=== PATIENT | female | born 1995 | race African-American/Black ===

== ENCOUNTER 2016-09-27 17:23 | Inpatient (IN) | payer OTHER ==
[~2016-09-27] VITALS: Ht 160 cm; Wt 54.4 kg
[2016-09-27 17:28] VITALS: BP 115/68; PULSE 59; RESP 18; TEMP 98; O2SAT 98
[2016-09-27] MEDS ORDERED: birth control PO (17:32)
[2016-09-27] MEDS ORDERED: SPRI28TA PO (18:20)
[2016-09-27 18:40] VITALS: BP 111/61; PULSE 53; RESP 18; TEMP 98.2; O2SAT 100
--- NOTE | 2016-09-27 18:40 | PD ---
HPI Chief Complaint: Psychiatric Symptoms Time Seen by Provider: 18:40 Travel History International Travel<30 days: No Contact w/Intl Traveler<30days: No Traveled to known affect area: No History of Present Illness HPI 21-year-old female is brought to the emergency department under Vázquez act for suicidal ideations. 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 When asked the patient if she is having any suicidal or homicidal ideations she states "I don't want to talk to anyone anymore." She denies any history of medical conditions. Denies any medical complaints. Denies fever, chills, nausea, vomiting, abdominal pain, chest pain, shortness of breath. Denies any alcohol or drug use. Denies any attempts to harm herself. Denies , last menstrual period 2 weeks ago. No other complaints. PFSH Past Medical History Chest Pain: Yes (CHEST PAIN R/T COSTOCHONDRITIS ) Diminished Hearing: No Respiratory: Yes (COSTOCHONDRITIS) Immunizations Current: Yes ?: Not : 0 Para: 0 Miscarriage: 0 : 0 Social History Alcohol Use: No Tobacco Use: No Substance Use: No Allergies-Medications (Allergen,Severity, Reaction): Coded Allergies: No Known Allergies (Unverified , 09/27/16) Reported Meds & Prescriptions Reported Meds & Active Scripts Active Reported Sprintec 28 (Norgestimate-Ethinyl Estradiol) 0.25-35 mg-Mcg Tab 1 Tab PO DAILY Review of Systems Except as stated in HPI: all other systems reviewed are Neg Physical Exam Narrative GENERAL: Well-nourished and well-developed female patient in no acute distress who is nontoxic appearing. SKIN: Warm and dry. HEAD: Normocephalic and atraumatic. EYES: No injection, drainage, or hyphema noted. PERRLA. EOMI. ENT: No nasal drainage noted. Oropharynx is clear. NECK: Supple and the trachea is midline. CARDIOVASCULAR: Regular rate and rhythm. RESPIRATORY: Breath sounds are equal bilaterally with no accessory muscle use, wheezing, rhonchi, or crackles. GASTROINTESTINAL: Abdomen is soft, non-tender, and nondistended. MUSCULOSKELETAL: No obvious deformities, swelling, cyanosis, or ecchymosis is present throughout the upper and lower extremities. Patient has full range of motion without any signs of neurovascular compromise. NEUROLOGICAL: Awake, alert, and oriented. Normal speech and gait. Cranial nerves are grossly intact. Data Data Last Documented VS Vital Signs Date Time Temp Pulse Resp B/P Pulse Ox O2 Delivery O2 Flow Rate FiO2 09/27/16 22:18 97.1 54 18 111/56 95 Room Air Orders Complete Blood Count With Diff (09/27/16 18:00) Comprehensive Metabolic Panel (09/27/16 18:00) Beta Hcg (Quant/Titer) (09/27/16 18:00) Psych Screen (09/27/16 18:00) Drug Screen, Random Urine (09/27/16 18:00) Alcohol (Ethanol) (09/27/16 18:00) Labs Laboratory Tests Test 09/27/16 09/27/16 18:27 19:15 White Blood Count 7.5 TH/MM3 Red Blood Count 4.52 MIL/MM3 Hemoglobin 11.7 GM/DL Hematocrit 36.2 % Mean Corpuscular Volume 80.2 FL Mean Corpuscular Hemoglobin 25.9 PG Mean Corpuscular Hemoglobin 32.2 % Concent Red Cell Distribution Width 12.8 % Platelet Count 236 TH/MM3 Mean Platelet Volume 7.3 FL Neutrophils (%) (Auto) 51.6 % Lymphocytes (%) (Auto) 37.7 % Monocytes (%) (Auto) 9.8 % Eosinophils (%) (Auto) 0.6 % Basophils (%) (Auto) 0.3 % Neutrophils # (Auto) 3.9 TH/MM3 Lymphocytes # (Auto) 2.8 TH/MM3 Monocytes # (Auto) 0.7 TH/MM3 Eosinophils # (Auto) 0.0 TH/MM3 Basophils # (Auto) 0.0 TH/MM3 CBC Comment DIFF FINAL Differential Comment Sodium Level 139 MEQ/L Potassium Level 3.6 MEQ/L Chloride Level 106 MEQ/L Carbon Dioxide Level 26.5 MEQ/L Anion Gap 7 MEQ/L Blood Urea Nitrogen 9 MG/DL Creatinine 0.82 MG/DL Estimat Glomerular Filtration 106 ML/MIN Rate Random Glucose 78 MG/DL Calcium Level 8.8 MG/DL Total Bilirubin 0.3 MG/DL Aspartate Amino Transf 18 U/L (AST/SGOT) Alanine Aminotransferase 24 U/L (ALT/SGPT) Alkaline Phosphatase 43 U/L Total Protein 7.0 GM/DL Albumin 3.3 GM/DL Human Chorionic Gonadotropin, LESS THAN 1 Quant MIU/ML Ethyl Alcohol Level LESS THAN 3 MG/DL Urine Opiates Screen NEG Urine Barbiturates Screen NEG Urine Amphetamines Screen NEG Urine Benzodiazepines Screen NEG Urine Cocaine Screen NEG Urine Cannabinoids Screen NEG MDM Medical Decision Making Medical Screen Exam Complete: Yes Emergency Medical Condition: Yes Differential Diagnosis Differential: Depression versus adjustment reaction versus anxiety versus PTSD versus psychosis NOS versus mood disorder NOS versus substance induced mood disorder versus ODD versus adjustment reaction versus schizophrenia versus bipolar disorder versus schizoaffective versus electrolyte abnormality Narrative Course Patient presents under a Vázquez act. Physical examination and vital signs are essentially unremarkable. Patient has no medical complaints to report. Psych screen has been ordered. The laboratory results are unremarkable. The patient is medically cleared for psychiatric evaluation and disposition. Diagnosis Primary Impression: Suicidal ideations Hoda Wilkes Sep 27, 2016 18:40
[2016-09-27 18:55] LABS: AUTOMATED NEUTROPHIL # 3.9 TH/MM3 (1.8-7.7); BASOPHIL % 0.3 % (0.0-2.0); EOSINOPHIL % 0.6 % (0.0-4.0); HEMATOCRIT 36.2 % (35.0-46.0); HEMO FLAGS DIFF FINAL; LYMPH % 37.7 % (9.0-44.0); LYMPHOCYTE # 2.8 TH/MM3 (1.0-4.8); MEAN CELL VOLUME 80.2 FL (80.0-100.0); MEAN CORPUSCULAR HEMOGLOBIN 25.9 PG (27.0-34.0); MEAN CORPUSCULAR HGB CONC 32.2 % (32.0-36.0); MONO % 9.8 % (0.0-8.0); NEUT % 51.6 % (16.0-70.0); PLATELET COUNT 236 TH/MM3 (150-450); RED BLOOD COUNT 4.52 MIL/MM3 (4.00-5.30); RED CELL DISTRIBUTION WIDTH 12.8 % (11.6-17.2); WHITE BLOOD COUNT 7.5 TH/MM3 (4.0-11.0)
[2016-09-27 19:22] LABS: ANION GAP 7 MEQ/L (5-15); AST (GOT) 18 U/L (15-37); BICARBONATE 26.5 MEQ/L (21.0-32.0); BLOOD UREA NITROGEN 9 MG/DL (7-18); CHLORIDE 106 MEQ/L (98-107); GLOMERULAR FILTRATION RATE 106 ML/MIN (>89); POTASSIUM 3.6 MEQ/L (3.5-5.1); SODIUM (NA) 139 MEQ/L (136-145)
[2016-09-27 19:27] LABS: ALKALINE PHOSPHATASE 43 U/L (45-117); ALT (GPT) 24 U/L (10-53); BETA HCG QUANT LESS THAN 1 MIU/ML (0-5); TOTAL BILIRUBIN ADULT 0.3 MG/DL (0.2-1.0)
[2016-09-27 19:32] LABS: AMPHETAMINE, URINE NEG (NEG); BARBITURATES, URINE NEG (NEG); COCAINE, URINE NEG (NEG)
[2016-09-27 22:18] VITALS: BP 111/56; PULSE 54; RESP 18; TEMP 97.1; O2SAT 95
[2016-09-28] MEDS ORDERED: diphenhydrAMINE HCL 50 MG/ML VIAL IM PRN (01:00)
[2016-09-28] MEDS ORDERED: ACETAMINOPHEN 325 MG TAB PO PRN (01:00)
[2016-09-28] MEDS ORDERED: traZODone HCL 50 MG TAB PO PRN (01:00)
[2016-09-28] MEDS ORDERED: BENZTROPINE MESYLATE 1 MG TAB PO PRN (01:00)
[2016-09-28] MEDS ORDERED: diphenhydrAMINE HCL 50 MG CAP PO PRN (01:00)
[2016-09-28] MEDS ORDERED: MAGNESIUM HYDROXIDE SUSP 30 ML CUP PO PRN (01:00)
[2016-09-28] MEDS ORDERED: ALUMINUM/MAGNESIUM/SIMETH 30 ML CUP PO PRN (01:00)
[2016-09-28] MEDS ORDERED: diphenhydrAMINE HCL 50 MG/ML VIAL - HS PRN IM (01:00)
[2016-09-28] MEDS ORDERED: BENZTROPINE MESYLATE 2 MG/2 ML VIAL IM PRN (01:00)
[2016-09-28] MEDS ORDERED: diphenhydrAMINE HCL 50 MG CAP - HS PRN PO (01:00)
[2016-09-28] MEDS ORDERED: hydrOXYzine HCL 50 MG TAB PO PRN (01:00)
[2016-09-28 02:10] VITALS: BP 124/66; PULSE 55; RESP 16; TEMP 97.8; O2SAT 100
[2016-09-28 02:12] VITALS: BP 101/46; PULSE 60; RESP 16; O2SAT 97
[2016-09-28 06:13] VITALS: BP 99/58; PULSE 55; RESP 16; TEMP 97.3
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
[2016-09-28 18:08] VITALS: BP 111/50; PULSE 73; RESP 16; TEMP 98; O2SAT 100
[2016-09-28] MEDS: SPRINTEC PO SCH (21:44)
[2016-09-29 05:33] VITALS: BP 116/56; PULSE 91; RESP 18; TEMP 97.8; O2SAT 99
[2016-09-29 08:47] LABS: AUTOMATED NEUTROPHIL # 2.4 TH/MM3 (1.8-7.7); BASOPHIL % 0.4 % (0.0-2.0); EOSINOPHIL # 0.1 TH/MM3 (0-0.4); EOSINOPHIL % 1.4 % (0.0-4.0); HEMATOCRIT 38.4 % (35.0-46.0); HEMO FLAGS DIFF FINAL; LYMPH % 51.3 % (9.0-44.0); LYMPHOCYTE # 3.3 TH/MM3 (1.0-4.8); MEAN CORPUSCULAR HEMOGLOBIN 25.7 PG (27.0-34.0); MEAN CORPUSCULAR HGB CONC 31.8 % (32.0-36.0); MONO % 9.7 % (0.0-8.0); NEUT % 37.2 % (16.0-70.0); PLATELET COUNT 238 TH/MM3 (150-450); RED BLOOD COUNT 4.75 MIL/MM3 (4.00-5.30); WHITE BLOOD COUNT 6.5 TH/MM3 (4.0-11.0)
[2016-09-29] MEDS ORDERED: PATIENT OWN MEDICATION PO SCH (09:00)
[2016-09-29] MEDS ORDERED: ESCITALOPRAM OXALATE 10 MG TAB PO SCH (09:00)
[2016-09-29 09:10] LABS: ANION GAP 7 MEQ/L (5-15); BICARBONATE 27.6 MEQ/L (21.0-32.0); BLOOD UREA NITROGEN 8 MG/DL (7-18); CHLORIDE 104 MEQ/L (98-107); GLOMERULAR FILTRATION RATE 116 ML/MIN (>89); POTASSIUM 4.1 MEQ/L (3.5-5.1); SODIUM (NA) 139 MEQ/L (136-145)
[2016-09-29 09:15] LABS: HDL CHOLESTEROL 62.5 MG/DL (40.0-60.0); LDL CHOLESTEROL 74 MG/DL (0-99)
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
[2016-09-29 15:44] LABS: HEMOGLOBIN A1a 0.7 %; HEMOGLOBIN A1b 1.3 %; HEMOGLOBIN Ao 86.7 %; HEMOGLOBIN LA1C 1.7 %; HEMOGLOBIN P3 3.4 %
[2016-09-29 19:34] VITALS: BP 101/52; PULSE 70; RESP 18; TEMP 98.2; O2SAT 100
[2016-09-29] MEDS: SPRINTEC PO SCH (20:37)
[2016-09-30 05:22] VITALS: BP 106/56; PULSE 68; RESP 18; TEMP 97.9; O2SAT 99
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
[2016-09-30 19:51] VITALS: BP 134/57; PULSE 64; RESP 18; TEMP 98.6; O2SAT 100
[2016-09-30] MEDS: SPRINTEC PO SCH (21:56)
[2016-10-01 05:46] VITALS: BP 104/58; PULSE 80; RESP 16; TEMP 98.1; O2SAT 100
--- NOTE | 2016-10-01 15:11 | HHI.PYPN ---
Subjective Remarks Patient was seen and case discussed with nursing. Patient appears much brighter compared to her first meeting on Sunday. She is smiling and engaging during the interview. Says her depressed mood has resolved. She is visiting with friends today. Says she briefly spoke to her father. See my note from yesterday concerning a detailed letter that she wrote. His compliant with her medications. She denies suicidal ideations intent or plan Objective Alert: Yes [place]: Person, Place, Date Mood: Depressed Affect: Flat Memory Intact: Immediate Hallucinations: Other (denies) Delusions: No Delusion Type: Other (denies) Suicidal: Ideation (denies) Homicidal: Ideation (denies) Insight/Judgement Improving Vitals/IOs Vital Signs Date Time Temp Pulse Resp B/P Pulse Ox O2 Delivery O2 Flow Rate FiO2 10/01/16 05:46 98.1 80 16 104/58 100 09/28/16 02:12 Room Air Assessment & Plan Problem List: (1) Major depressive disorder, single episode, severe without psychosis ICD Code: F32.2 Assessment & Plan Continue current treatment plan Justification for Cont. Inpt. Patient will decompensate in a less restrictive setting Request HC Surrog/Guard Advoc?: No Per Stahl DO Oct 01, 2016 15:11
[2016-10-01 18:29] VITALS: BP 116/60; PULSE 83; RESP 18; TEMP 98.6; O2SAT 98
[2016-10-01] MEDS: SPRINTEC PO SCH (21:47)
[2016-10-02 06:27] VITALS: BP 81/42; PULSE 51; RESP 16; TEMP 97.6; O2SAT 97
--- NOTE | 2016-10-02 12:47 | HHI.DS ---
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 She is afraid she will do something harmful if she goes home. Patient refusing voluntary psych eval. Patient seen screened in the ED urine toxicology negative blood alcohol level negative, urine test negative. At the present time patient sitting quietly in her room on 2600 nurse Chiara and medical student Kelley present throughout session. Patient laying quietly in her bed quite guarded with his sad face poor eye contact and very brief whispered guarded responses. Stating she has been depressed for a number of weeks. She said crying spells with this there is a marked anhedonia with decreased energy, some hypersomnia though with poor sleep efficiency, she states she has been eating somewhat more both little pleasure, she states there is decreased concentration and attention, the some increased irritability and short temperedness, she does deny any voices or visions with this, denies any self-medication, though there is the suicidal ideation intent, and she has been researching the Internet for a plan to kill herself painlessly. I asked her if she would take the pain the suicide pill, she was somewhat equivocal related to that. Patient is been here 2 years from [facility] she is giving somewhat confusing story about her family of origin there appears he some issues related to her father stating that he appears to be quite critical of her. It appears to his mother and 3 sisters in the family. Patient has very little social life. States she is not dating though her sexual preferences male. The implication was that she has not been sexually active. That she is taking control pills to control acne. She states when she gets upset she runs. She states she's tried alcohol once when she first came in does not like it denies other drug use. When asked about mental health history in the family patient stated she did not know. When asked for physical or sexual abuse she avoided the question. At the present time patient meets criteria for involuntary psychiatric hospitalization under the Vázquez act I'll do first opinion requests second opinion peripheral she does have capacity at this time to agree to medication. Will offer Lexapro 10 mg daily. Tobacco Use In Past 30 Days: No Tobacco Past 30 Days Alcohol Use: Never Hospital Course Patient seen today with treatment team. Also seen with her nurse from unit 2600 , patient declined the antidepressant over the weekend. However patient had a good weekend eating well and sleeping well patient is calm cooperative today states she feels much better and calmer, denies suicidality homicidality voices or visions. States she had a good conversation with her parents from [place], she now feels safe returning to school, does have a counselor through school that she will continue with her also. Thus patient be discharged today to her self with no Rx by me. Follow-through with counselor's on 3 mental health workers/psychiatrist (estimated) through the [place] Results Blood Pressure 81 / 42 Vital Signs Date Time Temp Pulse Resp B/P Pulse Ox O2 Delivery O2 Flow Rate FiO2 10/02/16 06:27 97.6 51 16 81/42 97 Laboratory Results Test 09/29/16 07:15 Hemoglobin A1c 5.2 % (4.3-6.0) Triglycerides Level 39 MG/DL (42-150) Cholesterol Level 144 MG/DL (120-200) LDL Cholesterol 74 MG/DL (0-99) HDL Cholesterol 62.5 MG/DL (40.0-60.0) Summary of Procedures None done Pending results at discharge: No Medications # of Antipsychotic meds at D/C: 0 Approp Antipsych med options 1 - Minimum of three failed multiple trials of monotherapy. 2 - Documented plan to taper to monotherapy due to previous use of multiple meds OR cross-taper in progress at D/C. 3 - Documentation of augmentation of Clozapine. 4 - Justification other than those listed in allowable values 1-3, document here : Discharge Discharge Date: Oct 02, 2016 Discharge Diagnosis: (1) Major depressive disorder, single episode, severe without psychosis Diagnosis: Principal ICD Code: F32.2 Mental Status Exam at Disch Alert oriented thin slender Afro-Mauritanian female sitting calmly with the treatment team, she is normal active, mood is euthymic with slight decrease range of motion intensity of her affect, speech rate and rhythm are within normal limits though no formal thought disorders, no energy or visual hallucinations, no delusions, insight and judgment is poor to fair, cognition grossly intact Pt Condition on Discharge: Stable Discharge Disposition: Discharge Home Discharge Instructions Diet Instructions: As Tolerated, No Restrictions Activities you can perform: Regular-No Restrictions Scheduled Appointment: College Counselor Appointment Date: Oct 02, 2016 Appointment Time: 3:00 Discharge Time > 30 minutes Discharge/Advance Care Plan Health Problems: (1) Major depressive disorder, single episode, severe without psychosis Goals to promote your health * To prevent worsening of your condition and complications * To maintain your health at the optimal level Directions to meet your goals Take your medications as prescribed Follow your dietary instruction Follow activity as directed Keep your appointments as scheduled Take your immunizations and boosters as scheduled If your symptoms worsen call your PCP, if no PCP go to Urgent Care Center or Emergency Room For 26/02 questions related to your inpatient stay or results of tests pending at discharge, please contact Dr. Juan J Pineda at Smoking is Dangerous to Your Health. Avoid second hand smoking Juan J Pineda MD Oct 02, 2016 12:47
== END 2016-10-02 15:25 | disposition home or self-care (01) | DRG 885 ==
LOC: NEPJ 17:23 → NEDA 09-28 00:46 → H260 09-28 02:10
PROVIDERS: ADMIT Psychiatry & Neurology Psychiatry; ATTEND Psychiatry & Neurology Psychiatry
DX: F32.2 Major depressive disorder, single episode, severe without psychotic features (principal)
CPT/HCPCS: 80048; 80053; 80061; 80307; 80320; 83036; 84702; 85025; 99284

== ENCOUNTER 2016-12-27 12:55 | Emergency (ER) | payer OTHER ==
[~2016-12-27] VITALS: Ht 160 cm; Wt 52.2 kg
[~2016-12-27 12:55] MED LIST: SPRI28TA PO
[2016-12-27 13:08] VITALS: BP 122/70; PULSE 71; RESP 20; TEMP 98.7; O2SAT 96
[2016-12-27] MEDS ORDERED: LEXA10TA PO (13:15)
--- NOTE | 2016-12-27 13:25 | PD ---
HPI Chief Complaint: Psychiatric Symptoms Time Seen by Provider: 13:18 Travel History International Travel<30 days: No Contact w/Intl Traveler<30days: No Traveled to known affect area: No History of Present Illness HPI 21-year-old woman presents to the emergency department under a Vázquez act because she reportedly told her roommate that she was hanging herself. Patient states she told the friend/roommate this so that she would leave her alone. She denies any intentional self-harm. She has a history of depression and states she gets more depressed at times but has not been especially depressed recently. Denies any recent illness or injury. No other complaint. History Past Medical History Narrative Medical Depression LMP: LAST MONTH : 0 Para: 0 Social History Alcohol Use: No Tobacco Use: No Allergies-Medications (Allergen,Severity, Reaction): Coded Allergies: No Known Allergies (Unverified , 09/27/16) Reported Meds & Prescriptions Reported Meds & Active Scripts Active Reported Lexapro (Escitalopram Oxalate) 10 Mg Tab 10 Mg PO DAILY Sprintec 28 (Norgestimate-Ethinyl Estradiol) 0.25-35 mg-Mcg Tab 1 Tab PO DAILY Review of Systems Except as stated in HPI: all other systems reviewed are Neg Physical Exam Narrative GENERAL: Well-appearing 21 year-old woman, no acute distress. SKIN: Focused skin assessment warm/dry. CARDIOVASCULAR: Regular rate and rhythm. No murmur appreciated. RESPIRATORY: No accessory muscle use. Clear to auscultation. Breath sounds equal bilaterally. GASTROINTESTINAL: Abdomen soft, non-tender, nondistended. Hepatic and splenic margins not palpable. MUSCULOSKELETAL: No obvious deformities. No clubbing. No cyanosis. No edema. NEUROLOGICAL: Awake and alert. No obvious cranial nerve deficits. Motor grossly within normal limits. Normal speech. PSYCHIATRIC: Appropriate mood and affect; insight and judgment normal. Data Data Last Documented VS Vital Signs Date Time Temp Pulse Resp B/P Pulse Ox O2 Delivery O2 Flow Rate FiO2 12/27/16 13:08 98.7 71 20 122/70 96 Orders Complete Blood Count With Diff (12/27/16 13:23) Comprehensive Metabolic Panel (12/27/16 13:23) Psych Screen (12/27/16 13:23) Drug Screen, Random Urine (12/27/16 13:23) [facility] Medical Decision Making Medical Screen Exam Complete: Yes Emergency Medical Condition: Yes Differential Diagnosis Depression, adjustment reaction, disorder Narrative Course Medical decision-making new 21 year-old woman, made threatening statements, appears low risk for self-harm, medically clear for psychiatric evaluation. Mental health screening discussed with the patient. Psychiatric screen ordered. Diagnosis Primary Impression: Suicidal ideations Lenny Leavitt MD December 27, 2016 13:25
[2016-12-27 13:54] LABS: AUTOMATED NEUTROPHIL # 2.6 TH/MM3 (1.8-7.7); BASOPHIL % 0.3 % (0.0-2.0); EOSINOPHIL % 0.7 % (0.0-4.0); HEMO FLAGS DIFF FINAL; LYMPH % 44.1 % (9.0-44.0); LYMPHOCYTE # 2.6 TH/MM3 (1.0-4.8); MEAN CELL VOLUME 78.6 FL (80.0-100.0); MEAN CORPUSCULAR HEMOGLOBIN 25.3 PG (27.0-34.0); MEAN CORPUSCULAR HGB CONC 32.2 % (32.0-36.0); MONO % 9.5 % (0.0-8.0); NEUT % 45.4 % (16.0-70.0); PLATELET COUNT 235 TH/MM3 (150-450); RED BLOOD COUNT 4.84 MIL/MM3 (4.00-5.30); RED CELL DISTRIBUTION WIDTH 12.4 % (11.6-17.2); WHITE BLOOD COUNT 5.8 TH/MM3 (4.0-11.0)
[2016-12-27 14:08] LABS: ALT (GPT) 23 U/L (10-53); ANION GAP 6 MEQ/L (5-15); AST (GOT) 18 U/L (15-37); BICARBONATE 25.3 MEQ/L (21.0-32.0); BLOOD UREA NITROGEN 8 MG/DL (7-18); CHLORIDE 109 MEQ/L (98-107); GLOMERULAR FILTRATION RATE 132 ML/MIN (>89); POTASSIUM 3.8 MEQ/L (3.5-5.1); SODIUM (NA) 140 MEQ/L (136-145)
[2016-12-27 14:10] LABS: ALKALINE PHOSPHATASE 43 U/L (45-117); TOTAL BILIRUBIN ADULT 0.2 MG/DL (0.2-1.0)
[2016-12-27 15:26] LABS: AMPHETAMINE, URINE NEG (NEG); BARBITURATES, URINE NEG (NEG); COCAINE, URINE NEG (NEG)
[2016-12-27 16:09] VITALS: BP 124/68; PULSE 58; TEMP 96.2; O2SAT 97
--- NOTE | 2016-12-27 17:16 | PD ---
History of Present Illness Chief Complaint: Psychiatric Symptoms Time Seen by Provider: 17:00 Travel History International Travel<30 Days: No Contact w/Intl Traveler<30days: No Known affected area: No Legal Status Legal Status: Vázquez Act Vázquez Act Signed By: Mary Kumari History of Present Illness: History of Present Illness HPI 21-year-old woman with history of mood disorder who presents to the emergency department under a Vázquez act initiated by SHAMEKA. As per the report a roommate reported that she was going to hang herself. Locked herself in the room and refused to speak with a doctor. Patient did not make any attempt at harming herself. Patient is seen in [facility] along with GISELA Shaw. She is angry at being here because she does not feel she needs to be here. She states that she was staying with a friend because she was feeling depressed but that the friend was not spending any time with her so she left and returned to her apartment. The friend called her several times and " because I just wanted her to leave me alone I told her that if she did not stop calling I was going to hang myself". She denies any suicidal ideation, intent or plan. She denies feeling depressed now and is requesting discharge as she has to study for some exams. She has an appointment with her therapist tomorrow and she intends on keeping such appointment. " I would not hurt myself because I promised my therapist that if I felt suicidal I would call her. Also I have my family that I care about". PFSH Past Medical History Depression: Yes Cancer: No Cardiovascular Problems: Yes Chest Pain: Yes Diminished Hearing: No Endocrine: No Gastrointestinal Disorders: Yes (CONSTIPATION IN PAST) Genitourinary: No Headaches: No Immune Disorder: No Musculoskeletal: No Neurologic: No Psychiatric: No Reproductive: No Respiratory: No Immunizations Current: Yes ?: Not LMP: LAST MONTH : 0 Para: 0 Miscarriage: 0 : 0 Psychiatric History Psychiatric History Hx Psychiatric Treatment: one previous hosp at [facility] Sees a therapist on outpatietn basis. History of Inpatient Treatment: Yes Guns or firearms in home: No Social History Single , lives by herself. Studies [employer]. Born in [place]. Hx Alcohol Use: No Hx Tobacco Use: No Hx Substance Use: No Hx of Substance Use Treatment: No Family Psychiatric History negative Allergies-Medications (Allergen,Severity, Reaction): Coded Allergies: No Known Allergies (Unverified , 09/27/16) Reported Meds & Prescriptions Reported Meds & Active Scripts Active Reported Lexapro (Escitalopram Oxalate) 10 Mg Tab 10 Mg PO DAILY Sprintec 28 (Norgestimate-Ethinyl Estradiol) 0.25-35 mg-Mcg Tab 1 Tab PO DAILY Review of Systems Except as stated in HPI: all other systems reviewed are Neg Exam Alert: Yes [place]: Person (ox4) Mood: Angry Affect: Appropriate Speech: Clear, Logical Eye Contact: Normal Memory Intact: Comment (no impairmetn) Hallucinations: Other (negative) Delusions: No Suicidal: Ideation (denies any) Homicidal: Ideation (deneis any) Insight/Judgement Poor. not impaired [facility] Medical Decision Making Medical Record Reviewed: Yes Assessment/Plan 21 year old female with hx of mood disorder under a BA. Patient is denying any suicidal or homicidal ideation. She is future oriented. has appointment with outpatient therapist and appears connected to this therapist. She contracts for safety. At this time she does not meet BA criteria. and is requesting discharge. Will lift BA. advised patient to return to [facility] if any changes or concerns. Orders Complete Blood Count With Diff (12/27/16 13:23) Comprehensive Metabolic Panel (12/27/16 13:23) Psych Screen (12/27/16 13:23) Drug Screen, Random Urine (12/27/16 13:23) Diet Regular Basic (12/27/16 Dinner) Results Vital Signs Date Time Temp Pulse Resp B/P Pulse Ox O2 Delivery O2 Flow Rate FiO2 12/27/16 16:09 96.2 58 124/68 97 Room Air 12/27/16 13:08 98.7 71 20 122/70 96 Laboratory Tests Test 12/27/16 12/27/16 13:35 15:05 White Blood Count 5.8 Red Blood Count 4.84 Hemoglobin 12.2 Hematocrit 38.0 Mean Corpuscular Volume 78.6 Mean Corpuscular Hemoglobin 25.3 Mean Corpuscular Hemoglobin 32.2 Concent Red Cell Distribution Width 12.4 Platelet Count 235 Mean Platelet Volume 7.3 Neutrophils (%) (Auto) 45.4 Lymphocytes (%) (Auto) 44.1 Monocytes (%) (Auto) 9.5 Eosinophils (%) (Auto) 0.7 Basophils (%) (Auto) 0.3 Neutrophils # (Auto) 2.6 Lymphocytes # (Auto) 2.6 Monocytes # (Auto) 0.6 Eosinophils # (Auto) 0.0 Basophils # (Auto) 0.0 CBC Comment DIFF FINAL Differential Comment Sodium Level 140 Potassium Level 3.8 Chloride Level 109 Carbon Dioxide Level 25.3 Anion Gap 6 Blood Urea Nitrogen 8 Creatinine 0.68 Estimat Glomerular Filtration 132 Rate Random Glucose 78 Calcium Level 8.8 Total Bilirubin 0.2 Aspartate Amino Transf 18 (AST/SGOT) Alanine Aminotransferase 23 (ALT/SGPT) Alkaline Phosphatase 43 Total Protein 6.7 Albumin 3.3 Urine Opiates Screen NEG Urine Barbiturates Screen NEG Urine Amphetamines Screen NEG Urine Benzodiazepines Screen NEG Urine Cocaine Screen NEG Urine Cannabinoids Screen NEG Diagnosis Primary Impression: Adjustment disorder Ruled Out: Suicidal ideations Psychiatrically Cleared: Yes Problem Qualifiers Primary Impression: Adjustment disorder Qualified Code: F43.25 - Adjustment disorder with mixed disturbance of emotions and conduct Louise Peacock [facility] December 27, 2016 17:16
== END 2016-12-27 18:22 | disposition home or self-care (01) ==
LOC: NEPD 12:55 → NEPJ 18:22
DX: R45.851 Suicidal ideations (principal); F43.25 Adjustment disorder with mixed disturbance of emotions and conduct
CPT/HCPCS: 80053; 80307; 85025; 99283

== ENCOUNTER 2018-02-02 22:19 | Inpatient (IN) ==
--- NOTE | 2018-02-03 11:37 | ED ---
HPI - Psych - General Source: patient, police ([place] [employer] Officer Levi [id number]) Mode of arrival: other (Police) Limitations: no limitations - History of Present Illness MD complaint: feels depressed Onset (ago): week(s) Duration: constant History of same: Yes Relieving factors: none Exacerbating factors: none Context: not taking psychiatric medications (She states that her previous antidepressants did not work.) Associated psychiatric symptoms: depression, suicidal ideation Associated symptoms: other (Anhedonia, lethargy) Treatments prior to arrival: none If self harm: admits thoughts of self harm - General Chief Complaint: Psychiatric Symptoms Stated Complaint: "I just had a bad day yesterday. I was worried about a lot of things." Time Seen by Provider: 02/03/18 10:38 - History of Present Illness HPI Narrative: This is a 22-year-old single, -[place] female who presents to this facility under a Vázquez act placed by the [place] [employer]. The Vázquez act states "diagnosed with depression not taking medication, has been feeling depressed in recent days. Contacted her friend/roommate via text messages and told her she was going to kill herself and that if she was to not make it through the night it was fate". This patient has been seen previously at this facility for depression. She was admitted from September 27, 2016 to October 05, 2016 and was initially seen here on December 272016. Reviewed electronic medical records, labs, discuss case with staff. Toxicology screen negative. Evaluation was conducted in the patient's room in [facility]. Patient was found awake, alert, and oriented 4. Her speech is clear, logical, and organized. Her mood is depressed and her affect is sad. At this time she denies suicidal ideation, homicidal ideation, auditory or visual hallucinations. She does not seem internally stimulated nor is there any evidence of thought blocking. I can elicit no delusional material. Patient reports that she has not taken her antidepressants and "almost a year". She had been following up with Dr. Haile but states that she does not believe in taking medications. She reports that she has been going to therapy. She reports that her initial admission here was her first bout with depression and labels this as her second. She reports that she recently has been "having difficulty getting out of bed and just not feeling like doing the things I need to". Along with her anhedonia she is describing just a generalized worry " about a lot of things". When asked to elaborate she is unable to give any external stressors which might account for her feelings. She states that she has cut herself one time. Additionally, concerning to me was the statement she made when asked if she had a plan. The patient advised, "there is only one way I would kill myself, I would hang myself". She tends to downplay the episode however, she did become tearful while discussing it and expressed feeling helpless and hopeless. She stated that she was "tired of feeling this way all the time". (Roxanne Arias) - Related Data Home Medications Medication Instructions Recorded Confirmed escitalopram oxalate [Lexapro] 10 mg PO DAILY 02/03/18 02/03/18 norgestimate-ethinyl estradiol 1 tab PO DAILY 02/03/18 02/03/18 [Sprintec (28)] Allergies Allergy/AdvReac Type Severity Reaction Status Date / Time No Known Allergies Allergy Uncoded 09/27/16 17:31 Review of Systems All other systems reviewed negative except as stated [facility] - Medical History Medical History: Medical History (Last Reviewed 02/03/18 @ 11:29 by KATHERINE Jean) Depression - Substance Use History Substance History: Past History - Substance Use Type Marijuana Route Used: By Mouth Psychiatric History - Psychiatric History Psychiatric Treatment History: History of Psychiatric Treatment, History of Hospitalization in a Psychiatric Facility History of Inpatient Treatment: Yes Firearms in Home: No - Psychiatric History Previous admission at this facility from September 27, 2016 to October 05, 2016. Reports that she has been following with Dr. Haile but has not been since the beginning of this year because she felt that the medication was not working for her. Although, thinking back, initially she stated that she did not like the way they made her feel. She does report attending therapy groups. (Roxanne Arias) - Family Psychiatric History She states that she is unsure. (Roxanne Arias) Physical Exam - General Limitations: no limitations General appearance: alert Mental Status Examination Appearance: Appropriate Consciousness: Alert Orientation: x4 Motor Activity: Normal gait Speech: Unremarkable, Slow Language: Adequate Fund of Knowledge: Adequate Attention and Concentration: Adequate Memory: Unremarkable Mood: Sad Affect: Sad Thought Process & Associations: Intact Thought Content: Appropriate Hallucination Type: None Delusion Type: None Suicidal Ideation: Yes Suicidal Plan: Yes Suicidal Intention: No Homicidal Ideation: No Homicidal Plan: No Homicidal Intention: No Insight: Fair Judgment: Impulsive Initial Documented Vital Signs Temperature 98.7 F 02/03/18 03:09 Pulse Rate 58 L 02/03/18 03:09 Respiratory Rate 18 02/03/18 03:09 Blood Pressure 92/51 L 02/03/18 03:09 Pulse Oximetry 99 02/03/18 03:09 Last Documented Vital Signs Temperature 96.6 F L 02/03/18 10:36 Pulse Rate 65 02/03/18 10:36 Respiratory Rate 16 02/03/18 10:36 Blood Pressure 102/50 L 02/03/18 10:36 Pulse Oximetry 98 02/03/18 10:36 MDM - Psych - Differential Diagnosis Likely: suicidal ideation (Secondary diagnosis), depression (Primary diagnosis F33.1) - Lab Data Result diagrams: 02/02/18 22:31 - MDM Narrative Medical decision making narrative: Given this patient's previous history of suicidal ideation by hanging, as well as her discontinuation of antidepressants merely months after initiating treatment. I will be admitting her to the 2600 unit for further evaluation and treatment as deemed necessary. (Roxanne Arias) - Lab Data Lab Results 02/02/18 Range/Units 22:31 WBC 5.6 (4.0-11.0) TH/MM3 RBC 5.36 H (4.00-5.30) MIL/MM3 Hgb 13.9 (11.6-15.3) GM/DL Hct 42.8 (35.0-46.0) % MCV 79.9 L (80.0-100.0) FL MCH 25.9 L (27.0-34.0) PG MCHC 32.4 (32.0-36.0) % RDW 13.7 (11.6-17.2) % Plt Count 295 (150-450) TH/MM3 MPV 7.6 (7.0-11.0) FL Neut % (Auto) 36.9 (16.0-70.0) % Lymph % (Auto) 51.8 H (9.0-44.0) % [place] % (Auto) 8.3 H (0.0-8.0) % Eos % (Auto) 2.5 (0.0-4.0) % Baso % (Auto) 0.5 (0.0-2.0) % Neut # (Auto) 2.0 (1.8-7.7) TH/MM3 Lymph # (Auto) 2.9 (1.0-4.8) TH/MM3 [place] # (Auto) 0.5 (0-0.9) TH/MM3 Eos # (Auto) 0.1 (0-0.4) TH/MM3 Baso # (Auto) 0.0 (0-0.2) TH/MM3 CBC Comment DIFF FINAL
[2018-02-03 13:48] LABS: Bacteria,Urine Rare /hpf; Bilirubin,Urine Negative (Negative); Clarity,Urine Hazy (Clear); Color,Urine Yellow (Yellw/Straw); Glucose,Urine (UA) Negative (Negative); Leukocyte Esterase,Urine Negative (Negative); Mucus,Urine Many /lpf (Occasional); Nitrite,Urine Negative (Negative); Specific Gravity,Urine 1.026 (1.002-1.035); Squamous Epithelial Cell,Urine 1 /hpf (0-5)
[2018-02-03] MEDS: Senna/Docusate Sodium 8.6/50 MG Tablet PO SCH ×2 (21:17→21:23)
[2018-02-04 08:00] LABS: Anion Gap 9 meq/L (5-15); Blood Urea Nitrogen 13 mg/dL (7-18); Calcium 9.4 mg/dL (8.5-10.1); Carbon Dioxide 24.5 meq/L (21.0-32.0); Chloride 107 meq/L (98-107); Glomerular Filtration Rate Greater Than 89 mL/min (>89); Glucose,Random 81 mg/dL (74-106); Potassium 4.1 meq/L (3.5-5.1); Sodium 140 meq/L (136-145)
[2018-02-04 08:02] LABS: Cholesterol 160 mg/dL (120-200); Triglycerides 42 mg/dL (42-150)
[2018-02-04 08:04] LABS: Chol/HDL Ratio 3.01 Ratio; HDL Cholesterol 53.1 mg/dL (40.0-60.0); LDL Cholesterol,Calculated 99 mg/dL (0-99)
[2018-02-04] MEDS: Senna/Docusate Sodium 8.6/50 MG Tablet PO SCH ×2 (12:42→22:10)
[2018-02-04 22:50] LABS: Hemoglobin A1c 5.3 % (4.3-6.0)
[2018-02-05] MEDS: Senna/Docusate Sodium 8.6/50 MG Tablet PO SCH ×2 (14:21→21:20)
--- NOTE | 2018-02-05 15:33 | P.CONPSY ---
Provisional Diagnosis Admission Date: February 03, 2018 11:21 [place] I.: MDD, recurrent History of Present Illness Primary Care Provider: No Primary Care Physician History of Present Illness: The patient is a 22-year-old single, college student, [place], women, PPHx of depression, 1 hosp, 1 SAs, who presents to this facility under a Vázquez act placed by the [place] [employer]. The Vázquez act states "diagnosed with depression not taking medication, has been feeling depressed in recent days. Contacted her friend/roommate via text messages and told her she was going to kill herself and that if she was to not make it through the night it was fate". This patient has been seen previously at this facility for depression. She was admitted from September 27, 2016 to October 05, 2016 and was initially seen here on December 272016. consulted for second opinion. She denies being depressed now, she says was just frustrated yesterday. She denies SI, HI, VH,AH. [facility] - History History Provided By: Patient - Medical History Medical History: Medical History (Last Reviewed 02/03/18 @ 11:29 by KATHERINE Jean) Depression - Tobacco History Second Hand Smoke Exposure: No Tobacco Use In Past 30 Days: No Smoking Status: Never smoker - Alcohol History How Often Do You Have a Drink Containing Alcohol: Never - Substance Use History Substance History: No History of Abuse - Substance Use Type Marijuana Route Used: By Mouth Comment: denies Medications and Allergies Active Medications: Active Medications Al Hydroxide/Mg Hydroxide (Milk Of Magnesia Liq) 30 ml PO DAILY PRN PRN Reason: CONSTIPATION Senna/Docusate Sodium (Geovanna-Colace) 1 tab PO BID [facility] Last Admin: 02/05/18 14:21 Dose: Not Given Allergies Allergy/AdvReac Type Severity Reaction Status Date / Time No Known Allergies Allergy Uncoded 09/27/16 17:31 Home Medications Medication Instructions Recorded Confirmed Type escitalopram oxalate [Lexapro] 10 mg PO DAILY 02/03/18 02/03/18 History norgestimate-ethinyl estradiol 1 tab PO DAILY 02/03/18 02/03/18 History [Sprintec (28)] Exam Vital signs: Vital Signs 02/05/18 06:08 Temperature 98.2 F Pulse Rate 59 L Respiratory Rate 18 Blood Pressure 95/47 L Pulse Oximetry 100 Mental Status Examination Appearance: Appropriate Consciousness: Alert Orientation: x4 Motor Activity: Normal gait Speech: Unremarkable, Slow Language: Adequate Fund of Knowledge: Adequate Attention and Concentration: Adequate Memory: Unremarkable Mood: Sad Affect: Sad Thought Process & Associations: Intact Thought Content: Appropriate Hallucination Type: None Delusion Type: None Suicidal Ideation: No Suicidal Plan: No Suicidal Intention: No Homicidal Ideation: No Homicidal Plan: No Homicidal Intention: No Insight: Fair Judgment: Impulsive Assessment and Plan - Assessment (1) Depression Code(s): F32.9 - Major depressive disorder, single episode, unspecified Status : Acute - Plan Plan: Estimated LOS: [] days I have seen and examined this patient, reviewed the documentation and discussed with Dr. Guzman personally, I agree and concur with his assessment and plan. Justification for Continued Inpatient Stay: SI (1) Depression Qualifiers: Depression Type: major depressive disorder Major depression recurrence: recurrent Major depression episode severity: severe
--- NOTE | 2018-02-05 23:34 | P.HPPSY ---
Provisional Diagnosis Admission Date: February 03, 2018 11:21 [place] I.: MDD, recurrent Competence Certification of Person's Competence To Provide Express and Informed Consent I have personally examined Laura Marion, a person being served at [facility] on, February 05, 2018 2334. Express and informed consent means consent voluntarily given in writing, by a competent person, after sufficient explanation and disclosure of the subject matter involved to enable the person to make a knowing and willful decision without any element of force, fraud, deceit, duress, or other form of constraint or coercion. This person is 18 years of age or older, is not now known to be incompetent to consent to treatment with a guardian advocate, and does not have a health care surrogate or proxy currently making medical treatment decisions. I have found this person to be one of the following: [] Competent to provide express and informed consent, as defined above, for voluntary admission to this facility and is competent to provide express and informed consent for treatment. He/she has the consistent capacity to make well reasoned, willful, and knowing decisions concerning his or her medical or mental health treatment. The person fully and consistently understands the purpose of the admission for examination/placement and is fully capable of personally exercising all rights assured under [place] [] Incompetent to provide express and informed consent to voluntary admission, and this is incompetent to provide express and informed consent to treatment. The person must be transferred to involuntary status and a petition for a guardian advocate filed with the Circuit Court. [xxx] Refusing to provide express and informed consent to voluntary admission but is competent to provide express and informed consent for treatment. The person must be discharged or transferred to involuntary status. Form shall be completed within 24 hours of a person's arrival at the receiving facility and filed in the clinical record of each person: 1. Admitted on a voluntary basis 2. Permitted to provide express and informed consent to his/her own treatment 3. Allowed to transfer from involuntary to voluntary status 4. Prior to permitting a person to consent to his or her own treatment after having been previously found incompetent to consent to treatment. History of Present Illness Capacity: Has capacity History of Present Illness: LATE ENTRY FOR 02/04/18 Patient is a 22-year-old single, college student, American woman, with a past psychiatric history of depression, 1 previous psychiatric admission (last at [facility] in 2017), one prior suicide attempt, who presents to this facility under a Vázquez act placed by the [place] [employer] for depression and having texted friend of wanting to kill self which she was admitted to the inpatient psychiatric unit for further evaluation and management. The Vázquez act states "diagnosed with depression not taking medication, has been feeling depressed in recent days. Contacted her friend/roommate via text messages and told her she was going to kill herself and that if she was to not make it through the night it was fate". Patient was interviewed with nurse, states that she has had history of episodic suicidal ideations, recalls having had a prior admission for depression which at that time was on sertaline which she discontinued several months ago. She states that she has been following with college therapist/counselor but not on medications. She mentions that has not had any change in sleep, appetite, energy, concentration recently but had been feeling depressed prior to admission which she texted her friend who had contacted police. She states that she was having SI that day only and that she usually has SI every 2-3 months but at this time no longer has SI. She denies any other symptoms, no perceptual disturbances, no delusions; rest of psychiatric ROS negative. Past psychiatric history: prior psychiatric diagnosis of major depressive disorder, one prior psychiatric admission, one prior suicide attempt, no history of self injurious behavior, had prior outpatient psychiatrist but none curently, current follows with therapist, previously on sertraline. Substance use history: denies Past medical history: denies Allergies: NKDA Social history: single, no children, domiciled with roommate, in college, parents currently in [place]. - Inpatient Certification I certify that the inpatient services were ordered in accordance with Medicare regulations governing the order. This includes certification that hospital inpatient services are reasonable and necessary and in the case of services not specified as inpatient-only under 42 CFR 419.22(n), that they are appropriately provided as inpatient services in accordance to with the 2-midnight benchmark under 43 CFR 412.3(e) I certify that inpatient psychiatric hospital services are medically necessary. Evaluation and treatment and/or diagnostic testing are expected to improve the patient's condition. The patient needs on a daily basis, active treatment furnished directly by or requiring the supervision of inpatient psychiatric facility personnel. Estimated Total Length of Stay (Days): 7 Plans for Post Hospital Care: Home Review of Systems All other systems reviewed negative except as stated in HPI [facility] - History History Provided By: Patient - Medical History Medical History: Medical History (Last Reviewed 02/03/18 @ 11:29 by KATHERINE Jean) Depression - Tobacco History Second Hand Smoke Exposure: No Tobacco Use In Past 30 Days: No Smoking Status: Never smoker - Alcohol History How Often Do You Have a Drink Containing Alcohol: Never - Substance Use History Substance History: No History of Abuse - Substance Use Type Marijuana Route Used: By Mouth Comment: denies Quality Measures - Substance Abuse History Drug or alcohol use in the past 12 months: denies - Patient Strengths Patient's strengths (minimum of 2): verbal and communicative Medications and Allergies Active Medications: Active Medications Al Hydroxide/Mg Hydroxide (Milk Of Magnsara Liq) 30 ml PO DAILY PRN PRN Reason: CONSTIPATION Senna/Docusate Sodium (Geovanna-Colace) 1 tab PO BID [facility] Last Admin: 02/05/18 21:20 Dose: Not Given Allergies Allergy/AdvReac Type Severity Reaction Status Date / Time No Known Allergies Allergy Uncoded 09/27/16 17:31 Home Medications Medication Instructions Recorded Confirmed Type norgestimate-ethinyl estradiol 1 tab PO DAILY 02/03/18 02/03/18 History [Katie (28)] Results - Labs CBC & Chem 7: 02/02/18 22:31 02/04/18 07:06 Exam Vital signs: Vital Signs 02/05/18 06:08 02/05/18 18:20 Temperature 98.2 F 98.0 F Pulse Rate 59 L 62 Respiratory Rate 18 16 Blood Pressure 95/47 L 103/59 L Pulse Oximetry 100 97 Narrative: Patient found to be in no acute distress, no noted gross motor abnormalities, no tremors of EPS, no noted psychomotor agitation of retardation. Mental Status Examination Appearance: Appropriate Consciousness: Alert Orientation: x4 Motor Activity: Normal gait Speech: Unremarkable, Slow Language: Adequate Fund of Knowledge: Adequate Attention and Concentration: Adequate Memory: Unremarkable Mood: Sad Affect: Sad Thought Process & Associations: Intact Thought Content: Appropriate Hallucination Type: None Delusion Type: None Suicidal Ideation: No Suicidal Plan: No Suicidal Intention: No Homicidal Ideation: No Homicidal Plan: No Homicidal Intention: No Insight: Fair Judgment: Impulsive Assessment and Plan - Assessment (1) Depression Code(s): F32.9 - Major depressive disorder, single episode, unspecified Status : Acute - Plan Plan: Patient is a 22 y/o woman who carries a diagnosis of major depressive disorder with prior psychiatric admission and one prior suicide attempt who was admitted due to recent SI which patient at this time denies and refuses to resume antidepressant medications. Patient denied any significant depressive symptoms prior to admission other than SI that day. Although patient may be minimizing symptoms and refuses voluntary admission, petition for involuntary admission will be started for further observation and safety; second opinion requested. Patient has capacity to consent for treatment and refuses to start any medications at this time. Will monitor mood and behavior; discharge planning in progress. Justification for Continued Inpatient Stay: At risk for further decompensation if at lower level of care. Request Healthcare Surrogate/Guardian Advocate?: No (1) Depression Qualifiers: Depression Type: major depressive disorder Major depression recurrence: recurrent Major depression episode severity: severe
--- NOTE | 2018-02-05 23:34 | P.PNPSY ---
Subjective Remarks: Patient seen for follow up; chart reviewed. Discussion with nursing staff reported patient continues to refuse starting medications, visible on the unit, attending groups. Patient was found in day room, calm and cooperative. She states that she is still considering medications but that her mood has been "good", sleeping well, good appetite and attending groups. She denies suicidal ideation at this time. She mentions that her parents are in [place] and that the closes person to her here is her roommate. She also mentions feeling anxious that her roommate will leave the shared apartment in March and move out of state. Review of Systems All other systems reviewed negative except as stated in HPI Mental Status Examination Appearance: Appropriate Consciousness: Alert Orientation: x4 Motor Activity: Normal gait Speech: Unremarkable, Slow Language: Adequate Fund of Knowledge: Adequate Attention and Concentration: Adequate Memory: Unremarkable Mood: Appropriate Affect: Appropriate Thought Process & Associations: Intact Thought Content: Appropriate Hallucination Type: None Delusion Type: None Suicidal Ideation: No Suicidal Plan: No Suicidal Intention: No Homicidal Ideation: No Homicidal Plan: No Homicidal Intention: No Insight: Fair Judgment: Impulsive Assessment and Plan - Assessment (1) Depression Code(s): F32.9 - Major depressive disorder, single episode, unspecified Status : Acute - Plan Plan: Patient not noted to be depressed, denies any SI, attending groups and activities. Patient reports being future oriented and plans on resuming therapy with her therapist as well as attend outpatient psychiatry follow up. Continue to monitor mood and behavior. Discharge planning in progress. Justification for Continued Inpatient Stay: At risk for further decompensation if at lower level of care. Request Healthcare Surrogate/Guardian Advocate?: No (1) Depression Qualifiers: Depression Type: major depressive disorder Major depression recurrence: recurrent Major depression episode severity: severe
[2018-02-06] MEDS: Senna/Docusate Sodium 8.6/50 MG Tablet PO SCH (08:40)
--- NOTE | 2018-02-06 20:03 | P.DSPSY ---
Psychiatry Discharge Summary Inpatient Psychiatric care?: Yes Advance Directives: No Mental Health Advance Directive: No Health Care Proxy: No - Admission Admission Date: February 03, 2018 11:21 - Admission Diagnosis (1) Depression Code(s): F32.9 - Major depressive disorder, single episode, unspecified Brief History: Patient is a 22-year-old single, college student, [place] woman, with a past psychiatric history of depression, 1 previous psychiatric admission (last at [facility] in 2017), one prior suicide attempt, who presents to this facility under a Vázquez act placed by the [place] [employer] for depression and having texted friend of wanting to kill self which she was admitted to the inpatient psychiatric unit for further evaluation and management. The Vázquez act states "diagnosed with depression not taking medication, has been feeling depressed in recent days. Contacted her friend/roommate via text messages and told her she was going to kill herself and that if she was to not make it through the night it was fate". Patient was interviewed with nurse, states that she has had history of episodic suicidal ideations, recalls having had a prior admission for depression which at that time was on sertaline which she discontinued several months ago. She states that she has been following with college therapist/counselor but not on medications. She mentions that has not had any change in sleep, appetite, energy, concentration recently but had been feeling depressed prior to admission which she texted her friend who had contacted police. She states that she was having SI that day only and that she usually has SI every 2-3 months but at this time no longer has SI. She denies any other symptoms, no perceptual disturbances, no delusions; rest of psychiatric ROS negative. Past psychiatric history: prior psychiatric diagnosis of major depressive disorder, one prior psychiatric admission, one prior suicide attempt, no history of self injurious behavior, had prior outpatient psychiatrist but none curently, current follows with therapist, previously on sertraline. Substance use history: denies Past medical history: denies Allergies: NKDA Social history: single, no children, domiciled with roommate, in college, parents currently in [place]. Tobacco Use In Past 30 Days: No How Often Do You Have a Drink Containing Alcohol: Never Hospital Course: Patient is a 22-year-old single, college student, [place] woman, with a past psychiatric history of depression, 1 previous psychiatric admission (last at [facility] in 2017), one prior suicide attempt, who presents to this facility under a Vázquez act placed by the [place] [employer] for depression and having texted friend of wanting to kill self which she was admitted to the inpatient psychiatric unit for further evaluation and management. Patient was not started on medication as she decline to start psychotropic intervention and was monitored and maintained on unit for safety; and noted to be calm and cooperative with staff. Patient was noted with improvement in mood through milieu of unit and group therapy, noted to have denied having any suicidal ideations. She was observed by staff to not have had any behavioral disturbances, not having made any suicidal or homicidal statements and maintained stable mood through admission and was noted to participate with staff adequately. Patient was noted to participate in self care, engaging with staff and maintaining adequate hygiene. Patient reported feeling more hopeful, future oriented and motivated to re-engage in outpatient follow up. Treatment team was able to set up outpatient follow up appointments which the patient can continue therapy and attend psychiatry follow up. Upon discharge patient stated that she was feeling good, motivated to continue recommendations and denied any SI, HI, perceptual disturbances or delusions. Weighing the acute, chronic, and protective factors and based on the available evidence, I it systems engineer to a reasonable degree of medical certainty that the patient is at low imminent risk of harm to self or others from a mental illness as defined under the Vázquez act and her level of function is adequate as observed on the unit for planned level of outpatient care. She was counseled regarding warning signs for need to return to the psychiatric emergency room as part of a general safety plan. Patient advised to call 911 or go nearest ED in case of emergency. Patient agreed with plan. - Discharge Discharge Date: 02/06/18 - Discharge Diagnosis (1) Depression Code(s): F32.9 - Major depressive disorder, single episode, unspecified Status : Acute Discharge Disposition: Home - Discharge Instructions Discharge Diet: Regular Diet Activities You Can Perform: Regular- No Restrictions - Discharge Time > 30 minutes Mental Status Examination Appearance: Appropriate Consciousness: Alert Orientation: x4 Motor Activity: Normal gait Speech: Unremarkable Language: Adequate Fund of Knowledge: Adequate Attention and Concentration: Adequate Memory: Unremarkable Mood: Appropriate Affect: Appropriate Thought Process & Associations: Intact Thought Content: Appropriate Hallucination Type: None Delusion Type: None Suicidal Ideation: No Suicidal Plan: No Suicidal Intention: No Homicidal Ideation: No Homicidal Plan: No Homicidal Intention: No Insight: Adequate Judgment: Adequate Discharge/Advance Care Plan - Results Vital Signs: Last Vital Signs Temp 97.4 F L 02/06/18 06:00 Pulse 65 02/06/18 06:00 Resp 16 02/06/18 06:00 BP 81/53 L 02/06/18 06:00 Pulse Ox 100 02/06/18 06:00 Lab Results: Laboratory Results Hemoglobin A1c 5.3 % (4.3-6.0) 02/04/18 07:06 Triglycerides 42 mg/dL (42-150) 02/04/18 07:06 Cholesterol 160 mg/dL (120-200) 02/04/18 07:06 LDL Cholesterol, Calc 99 mg/dL (0-99) 02/04/18 07:06 HDL Cholesterol 53.1 mg/dL (40.0-60.0) 02/04/18 07:06 Urine Culture Comments Culture not ind 02/03/18 00:01 Summary of Procedures: None Pending Results: None - Medications Number of antipsychotic medications at discharge: 0 - Discharge Care Plan Goals to Promote Your Health: * To prevent worsening of your condition and complications * To maintain your health at the optimal level Directions to Meet Your Goals: Take your medications as prescribed Follow your dietary instruction Follow activity as directed Keep your appointments as scheduled Take your immunizations and boosters as scheduled If your symptoms worsen call your PCP, if no PCP go to Urgent Care Center or Emergency Room For 26/02 questions related to your inpatient stay or results of tests pending at discharge, please contact Dr. Samson Guzman MD at Smoking is Dangerous to Your Health. Avoid second hand smoking (1) Depression Qualifiers: Depression Type: major depressive disorder Major depression recurrence: recurrent Major depression episode severity: severe (1) Depression Qualifiers: Depression Type: major depressive disorder Major depression recurrence: recurrent Major depression episode severity: severe
== END 2018-02-06 13:40 | disposition home or self-care (01) ==
LOC: NEPJ 22:19 → NEDA 02-03 11:21 → H260 02-03 12:49
PROVIDERS: ADMIT Student in an Organized Health Care Education/Training Program; ATTEND Student in an Organized Health Care Education/Training Program